=== PATIENT | male | born 1995 | race Caucasian/White ===

== ENCOUNTER 2020-09-10 10:34 | Emergency (ER) | payer SELFPAY ==
[2020-09-10 10:40] VITALS: BP 137/79; PULSE 81; RESP 18; TEMP 37; O2SAT 96; BMI 37.2
[2020-09-10] MEDS: Cyclobenzaprine HCl 5 MG TABLET PO (11:07)
[2020-09-10] MEDS: Ketorolac Tromethamine 60 MG/2 ML VIAL IM (11:07)
[2020-09-10] MEDS: Lidocaine 4 % Patch ADH..PATCH 1 PATCH TRANSDERMA (11:07)
--- NOTE | 2020-09-10 12:31 | ED_ITS ---
HPI - Back Pain/Injury General Chief Complaint: Back Pain/Injury Stated Complaint: back pain Time Seen by Provider: 09/10/20 11:00 Source: EMS Mode of arrival: EMS Limitations: no limitations History of Present Illness HPI Narrative: States right lower back pain for past 2 days feel like he slept on it wrong hurt when he got up and with certain positions. States he was stooping over had a cough foot and felt like he pulled a muscle again in the right lower back. States it hurts to move. No nausea vomiting diarrhea. No abdominal pain. No headache, chest pain shortness of breath. No recent illness. No history of IV use. MD elicited complaint: back pain Pertinent past history: prior back pain Onset (ago): hour(s) Timing: constant Severity: moderate Similar Symptoms Previously: Yes Quality: aching Location: lumbar spine Radiation: none Exacerbating factors: movement Relieving factors: immobilization Context: bending Associated symptoms: denies other symptoms Work related injury: No Related Data Previous Rx's Medication Instructions Recorded cyclobenzaprine 5 mg PO TID PRN #20 tab 09/10/20 ibuprofen 800 mg PO Q8H PRN #30 tab 09/10/20 Allergies Allergy/AdvReac Type Severity Reaction Status Date / Time shrimp [SHRIMP] Allergy Severe THROAT Verified 09/10/20 10:42 SWELLING shrimp Allergy Unknown itchy Uncoded 08/18/16 00:00 throat/ tongue swelling Review of Systems Review of Systems: Constitutional: No Weight loss, No Fever, No Chills, No Ni ght Sweats, No Fatigue, No Malaise ENT/Mouth: No Hearing loss, No Ear Pain, No Nasal Congestion, No Sinus Pain, No Hoarseness, No sore throat, No Rhinorrhea, No Swallowing Difficulty Eyes: No Eye Pain, No Swelling, No Redness, No Foreign Body, No Discharge, No Vision Changes Cardiovascular: No Chest Pain, No SOB, No Dyspnea on Exertion, No Orthopnea, No Edema, No Palpitations Respiratory: No Cough, No Sputum, No Wheezing, No Smoke Exposure, No Dyspnea Gastrointestinal: No Nausea, No Vomiting, No Diarrhea, No Constipation, No abdominal Pain, No Hematochezia, No Melena Genitourinary: no irregular bleeding, No Dysuria, No Urinary Frequency, No Hematuria, No Urinary Incontinence, No Urgency, No Flank Pain Musculoskeletal: No joint pain, No Myalgias, No Joint Swelling, + back pain as noted Skin: No Skin Lesions, No rash Neuro: No Weakness, No Numbness, No Paresthesias, No Loss of Consciousness, No Dizziness, No Headache Psych: No Social Issues Heme/Lymph: No Bruising, No Bleeding,No Lymphadenopathy Endocrine: No Polyuria, No Polydipsia, No Temperature Intolerance Yes all other systems are reviewed and are negative [facility] Past Medical History Medical History (Updated 09/10/20 @ 12:33 by nErrique Lopez NP) Asthma Social History Social History Advance Directives: No Advance Directives Information Provided: No Physical Exam Vital Signs: Vital Signs: Last Vital Signs Temp 98.6 F 09/10/20 10:40 Pulse 81 09/10/20 10:40 Resp 18 09/10/20 10:40 BP 137/79 09/10/20 10:40 Pulse Ox 96 09/10/20 10:40 Body Mass Index 37.2 Reviewed Const: General: cooperative and healthy appearing; No acute distress or intoxicated appearing Nutritional Appearance: average body habitus Orientation/consciousness: patient oriented x3 HENMT: Head: Yes normal to inspection Ears: hearing grossly normal bilaterally Eyes: General: appearance normal, both eyes and all related structures Visual Resendiz: normal visual resendiz by confrontation Neck: Neck: Yes normal visual inspection, No positive Brudzinski's sign, No positive Kernig's sign and No tender Thyroid: Thyroid normal Chest: Chest palpation & inspection: normal inspection of the chest Resp: Effort & Inspection: normal respiratory effort Auscultation: clear to auscultation bilaterally Cardio: Jugular venous distension: no JVD Rhythm: regular rhythm Heart sounds: S1 normal heart sound present and S2 normal heart sound present GI: Inspection: Yes normal to inspection Percussion: Yes normal to percussion Auscultation: normal bowel sounds : General: Yes no CVA tenderness Male General Exam: Yes normal external exam Back/Spine/Pelvis: Back: no CVA tenderness Back/spine/pelvis image: 1. Soft tissue palpation over the paraspinous muscle. No midline temp palpation. No step-off. No radiation. Negative leg lift. Skin: General skin exam: no rashes or lesions noted Neuro: General: patient oriented x3 Extrem: General: Yes normal to inspection Course Course Course Narrative: Feels much better after lidocaine, Flexeril, Toradol. Ambulatory status with gait. No low back pain red flags. Exam consistent with muscular strain of the lumbar paraspinous muscle. Will discharge with short course instead, muscle relaxant, return follow-up instructions. Feels comfortable plan. Stable for discharge. Discharge Plan Discharge Clinical Impression: Strain of lumbar region Patient Disposition: Home, Self-Care Instructions: Low Back Strain (ED) Additional Instructions: Gentle stretching Warm compresses Take medication prescribed No drinking alcohol or driving while taking the muscle relaxant as clinically sleepy and drowsy Return if any concerns or worsening symptoms Otherwise follow up with her primary care doctor as discussed Thank you Prescriptions: New cyclobenzaprine 10 mg tablet 5 mg PO TID PRN (Reason: muscle spasm) Qty: 20 RF: 0 ibuprofen 800 mg tablet 800 mg PO Q8H PRN (Reason: pain) Qty: 30 RF: 0 Referrals: Viviana Pimentel MD [Primary Care Provider] - 1 week Interventions: ED Discharge Assessment Last Done: 09/10/20 12:37 Discharge Date/Time: 09/10/20 12:37
== END 2020-09-10 12:37 | disposition home or self-care (01) ==
PROVIDERS: Emergency Provider Emergency Medicine Emergency Medical Services; PCP Internal Medicine
DX: S39.012A Strain of muscle, fascia and tendon of lower back, initial encounter (principal); X58.XXXA Exposure to other specified factors, initial encounter; Y93.9 Activity, unspecified; Y92.9 Unspecified place or not applicable; Y99.9 Unspecified external cause status
CPT/HCPCS: 96372; 99283; 99284; J1885

== ENCOUNTER 2021-04-15 08:57 | Emergency (ER) | payer SELFPAY ==
--- NOTE | ~2021-04-15 | XR_ITS ---
EXAMINATION: XR CHEST CLINICAL INFORMATION: SOB end easing COMPARISON: None TECHNIQUE: Frontal view of the chest was obtained. FINDINGS: No significant abnormality is noted involving the heart, lungs, mediastinum, bony thorax or soft tissues. XR/XR chest 1V IMPRESSION: Unremarkable chest examination.
[2021-04-15 09:10] VITALS: BP 119/74; PULSE 97; RESP 22; TEMP 36.6; O2SAT 94; BMI 37.8
--- NOTE | 2021-04-15 09:42 | ED.ASTHMA ---
HPI - Asthma General Chief Complaint: Upper Respiratory Symptoms Stated Complaint: difficulty breathing Time Seen by Provider: 04/15/21 09:35 Source: patient Mode of arrival: ambulatory Limitations: no limitations History of Present Illness HPI Narrative: 25 y/o male with history of untreated asthma, active smoker who presents to the ER with 1 day of SOB and wheezing. He reports last night he started having some difficulty breathing and dry cough. He was up frequently throughout the night coughing and having shortness of breath. He denies sputum production, fever, chills, headache, myalgias. No known COVID exposure. He has no known asthma triggers and his asthma is usually well controlled. He does not have an inhaler at home. MD complaint: shortness of breath and wheezing Onset (ago): day(s) (1) Severity: moderate Context: none known Associated symptoms: dry cough Related Data Current Asthma Therapy: none Previous Rx's Medication Instructions Recorded cyclobenzaprine 10 mg tablet 5 mg PO TID PRN #20 tab 09/10/20 ibuprofen 800 mg tablet 800 mg PO Q8H PRN #30 tab 09/10/20 albuterol sulfate 90 mcg/actuation 1 inh INHALATION QID PRN #6.7 g 04/15/21 aerosol inhaler azithromycin 250 mg tablet See Rx Instructions .ROUTE 04/15/21 (Zithromax Z-Delfin) .COMPLEX #6 tab prednisone 20 mg tablet 40 mg PO DAILY #10 tab 04/15/21 Allergies Allergy/AdvReac Type Severity Reaction Status Date / Time shrimp [SHRIMP] Allergy Severe THROAT Verified 04/15/21 09:13 SWELLING shrimp Allergy Unknown itchy Uncoded 08/18/16 00:00 throat/ tongue swelling Review of Systems Constitutional: Constitutional: Denies chills, Denies fatigue, Denies fever(s) and Denies headache(s) Eyes: Eyes: Reports no additional eye complaints ENT: Denies otalgia, Denies headache(s) and Denies sore throat Cardiovascular: Cardiovascular: Denies chest pain, Reports dyspnea and Reports dyspnea on exertion Respiratory: Respiratory: Denies chest congestion, Reports cough, Denies hemoptysis, Denies pain on inspiration, Denies pain with cough, Reports dyspnea, Reports dyspnea on exertion and Reports wheezing Gastrointestinal: Gastrointestinal: Denies abdominal pain, Denies nausea and Denies vomiting Musculoskeletal: Musculoskeletal: Denies myalgias Neurologic: Denies headache(s) Endocrine: Endocrine: Denies fatigue Allergic/Immunologic: Allergic/Immunologic: Denies urticaria and Reports wheezing PMFSH Past Medical History Attestation statement: The following information was validated with the patient. Medical History Asthma Social History Social History Advance Directives: No Advance Directives Information Provided: Yes Physical Exam Vital Signs: Vital Signs: Last Vital Signs Temp 96.5 F L 04/15/21 11:18 Pulse 104 H 04/15/21 11:18 Resp 18 04/15/21 11:18 BP 141/69 H 04/15/21 11:18 Pulse Ox 96 04/15/21 11:18 Body Mass Index 37.8 Appearance: Alert. Oriented X3. No acute distress. Eyes: Pupils equal, round and reactive to light. ENT: Pharynx normal. Neck: Normal inspection. Neck supple. CVS: Normal heart rate and rhythm. Pulses normal. Respiratory: Mild respiratory distress with RR 22, no accessory muscle use. Diffuse inspiratory and expiratory wheezes throughout. Abdomen: Soft and nontender. +BS x4 Skin: Skin warm and dry. Normal skin color. Normal skin turgor. No rashes. Extremities: No lower extremity edema. No calf tenderness. Neuro: Oriented X 3. No motor deficit. No sensory deficit. Course Course Course Narrative: 25 y/o male with history of asthma presented to the ER with SOB and wheezing since last night. RR 22 on arrival, afebrile. Able to speak in complete sentences with diffuse wheezing on exam. Will get COVID swab, CXR and give albuterol neb and prednisone now. Will monitor closlely. Reevaluation(s) Reevaluation #1: CXR clear. COVID negative. Getting hour long albuterol neb. Breathing comfortably and already feeling better. Reevaluation #2: Slight wheeze remains in RLL but significant improvement in aeration and wheezing. Spo2 96% no SOB. He is stable for d/c home with treatment for acute bronchitis and asthma exacerbation. Encouraged to f/u PCP. MDM - Asthma Lab Data Labs: Lab Results 04/15/21 Range/Units 09:39 COVID-19 ([facility]) Negative (Negative) COVID-19 Clin Com See Note Critical Care Time Critical Care Time Critical Care Time: No Discharge Plan Discharge Clinical Impression: Bronchitis Patient Disposition: Home, Self-Care Instructions: Asthma (ED), Acute Bronchitis (ED) Additional Instructions: Your chest x-ray was normal. Your COVID was negative. Take the prescribed medications as directed. Start the prednisone tomorrow - you were give 1st dose in the ER today. QUIT SMOKING! If you develop new or worsening symptoms call 911 or come back to the ER for further evaluation. Prescriptions: New azithromycin [Zithromax Z-Delfin] 250 mg tablet See Rx Instructions .ROUTE .COMPLEX Qty: 6 RF: 0 prednisone 20 mg tablet 40 mg PO DAILY Qty: 10 RF: 0 albuterol sulfate 90 mcg/actuation HFA aerosol inhaler 1 inh inhalation QID PRN (Reason: shortness of breath or wheezing) Qty: 6.7 RF: 0 No Action cyclobenzaprine 10 mg tablet 5 mg PO TID PRN (Reason: muscle spasm) Qty: 20 RF: 0 ibuprofen 800 mg tablet 800 mg PO Q8H PRN (Reason: pain) Qty: 30 RF: 0 Referrals: Viviana Pimentel MD [Primary Care Provider] - 1 week (asthma exac) Stand Alone Forms: Work/School Release Interventions: ED Discharge Assessment Last Done: 04/15/21 11:39 Discharge Date/Time: 04/15/21 11:39
[2021-04-15] MEDS: predniSONE 20 MG TABLET 60 MG PO (09:47)
[2021-04-15 10:07] LABS: COVID-19 Test Negative (Negative)
[2021-04-15] MEDS: Albuterol Sulfate (0.083%) 2.5 MG/3 ML VIAL.NEB 10 MG INHALE (10:27)
[2021-04-15 11:18] VITALS: BP 141/69; PULSE 104; RESP 18; TEMP 35.8; O2SAT 96
== END 2021-04-15 11:39 | disposition home or self-care (01) ==
PROVIDERS: Physician Assistant; Emergency Provider Emergency Medicine; PCP Internal Medicine
DX: J40 Bronchitis, not specified as acute or chronic (principal); R06.02 Shortness of breath; F17.210 Nicotine dependence, cigarettes, uncomplicated; Z20.822 Contact with and (suspected) exposure to COVID-19; Z79.899 Other long term (current) drug therapy; Z71.6 Tobacco abuse counseling
CPT/HCPCS: 36415; 71045; 87635; 94640; 94644; 99284

== ENCOUNTER 2021-04-28 17:32 | Emergency (ER) | payer OTHER, SELFPAY ==
--- NOTE | ~2021-04-28 | XR_ITS ---
EXAMINATION: XR CHEST CLINICAL INFORMATION: Shortness of breath COMPARISON: 04/15/2021 TECHNIQUE: Frontal view of the chest was obtained. FINDINGS: No acute finding. No obvious failure or infiltrate. No effusion. The cardiac silhouette is within normal limits. The hilar structures are comparable to previous. XR/XR chest 1V IMPRESSION: No acute finding.
[2021-04-28 18:35] VITALS: BP 131/59; PULSE 95; RESP 22; TEMP 36.8; O2SAT 95; BMI 37.8
[2021-04-28 20:53] LABS: MANUAL DIFF FLAG NO
[2021-04-28 20:54] LABS: Basophils Absolute Auto 0.1 X10*3/uL (0.0-0.2); Basophils Percent Auto 0.5 % (0-2); Eosinophils Absolute Auto 0.4 X10*3/uL (0.0-0.4); Eosinophils Percent Auto 2.4 % (0-4); Hematocrit 48.5 % (42-52); Hemoglobin 17.1 g/dl (14.0-18.0); Imm Gran Abs Auto 0.13 X10*3/uL (0.00-0.03); Imm Gran Pct Auto 0.8 % (0.0-0.4); Lymphocytes Absolute Auto 3.2 X10*3/uL (1.2-4.9); Lymphocytes Percent Auto 18.8 % (20-40); Mean Corpuscular HGB Conc 35.3 g/dl (31.0-36.0); Mean Corpuscular Hemoglobin 29.9 pg (27.0-33.0); Mean Corpuscular Volume 84.8 fL (80-98); Mean Platelet Volume 11.7 fL (9.4-12.4); Monocytes Absolute Auto 1.4 X10*3/uL (0.1-1.2); Monocytes Percent Auto 7.9 % (2-11); Neutrophils Percent Auto 69.6 % (45-73); Platelet Count 361 X10*3/uL (160-400); Red Blood Count 5.72 X10*6/uL (4.60-5.80); Red Cell Distribution Width 12.9 % (11.0-16.0); White Blood Count 17.3 X10*3/uL (4.8-10.8)
[2021-04-28 20:58] LABS: COVID-19 Test Negative (Negative)
--- NOTE | 2021-04-28 21:01 | ED_ITS ---
HPI - Asthma General Chief Complaint: Asthma Stated Complaint: SOB Time Seen by Provider: 04/28/21 20:30 Source: patient Mode of arrival: ambulatory Limitations: no limitations History of Present Illness HPI Narrative: 25-year-old male who presents emergency department for evaluation of shortness of breath, nonproductive cough and dyspnea on exertion. Patient has a history of asthma. He states that his asthma has been flaring up the past 1-2 weeks, he does not know was triggered his asthma. Seen on 04/15/2021 with similar complaints and was diagnosed with bronchitis. On prednisone 40 mg once a day for 5 days. Zithromax Z-Delfin and an albuterol inhaler. The patient states that he could not afford the inhaler but did take the prednisone and Zithromax. Patient states he did initially feel better but his symptoms have not gotten worse. He states that he has a cough which is nonproductive. He states that he has persistent shortness of breath and dyspnea on exertion. He denied fever, chills, chest pain, abdominal pain, nausea, vomiting, myalgias, arthralgias, weakness, diarrhea, loss of sense of taste or smell. Related Data Previous Rx's Medication Instructions Recorded cyclobenzaprine 10 mg tablet 5 mg PO TID PRN #20 tab 09/10/20 ibuprofen 800 mg tablet 800 mg PO Q8H PRN #30 tab 09/10/20 albuterol sulfate 90 mcg/actuation 1 inh INHALATION QID PRN #6.7 g 04/15/21 aerosol inhaler azithromycin 250 mg tablet See Rx Instructions .ROUTE 04/15/21 (Zithromax Z-Delfin) .COMPLEX #6 tab prednisone 20 mg tablet 40 mg PO DAILY #10 tab 04/15/21 albuterol sulfate 90 mcg/actuation 2 puff INHALATION Q4-6H PRN #8.5 g 04/28/21 aerosol inhaler prednisone 20 mg tablet 60 mg PO DAILY 5 Days #15 tab 04/28/21 Allergies Allergy/AdvReac Type Severity Reaction Status Date / Time shrimp [SHRIMP] Allergy Severe THROAT Verified 04/15/21 09:13 SWELLING shrimp Allergy Unknown itchy Uncoded 08/18/16 00:00 throat/ tongue swelling Review of Systems Review of Systems: Yes all other systems are reviewed and are negative [facility] Past Medical History [facility] Narrative: Past medical history: Asthma. Surgical history: None. Social history: The patient smokes half a pack of cigarettes per day x9 years. He does drink alcohol occasionally. The patient smokes 2-3 marijuana blunt cigarettes per day. He denies other drug use. Medical History Asthma Social History Social History Advance Directives: No Advance Directives Information Provided: Yes Physical Exam Vital Signs: Vital Signs: Last Vital Signs Temp 98.2 F 04/28/21 18:35 Pulse 110 H 04/28/21 21:49 Resp 24 H 04/28/21 21:09 BP 141/86 H 04/28/21 21:09 Pulse Ox 92 04/28/21 21:09 Body Mass Index 37.8 Const: General: cooperative and no acute distress Orientation/consciousness: oriented to person and oriented to place Limitations: no limitations HENMT: Head: Yes normal to inspection, Yes normocephalic and Yes atraumatic Ears: external ears normal General nose exam: Normal external nose present Face and sinus: Yes normal facial exam Mouth: Normal oral and palatal mucosa present Throat: Yes posterior oropharynx normal Eyes: General: appearance normal, both eyes and all related structures Pupils: Equal, round and reactive pupils present Neck: Neck: Yes normal visual inspection, Yes no lymphadenopathy, Yes trachea midline and Yes supple Chest: Chest palpation & inspection: normal inspection of the chest and normal palpation of entire chest wall Resp: Effort & Inspection: normal respiratory effort and able to speak in complete sentences Auscultation: rhonchi (Bilaterally at bases) and wheezes (Diffuse) Cardio: Rate: regular rate Rhythm: regular rhythm Heart sounds: S1 normal heart sound present, S2 normal heart sound present and no murmurs GI: Inspection: Yes normal to inspection Palpation (GI): Soft to palpation, nontender and no guarding Auscultation: normal bowel sounds : General: Yes no CVA tenderness Back/Spine/Pelvis: Back: no CVA tenderness Skin: General skin exam: no rashes or lesions noted Neuro: General: oriented to person and oriented to place Cranial nerves: Yes CN's II-XII intact bilaterally and Yes Equal, round and reactive pupils present Cognition (Neuro): normal cognition Motor exam (neuro): 5/5 motor strength present throughout Extrem: General: Yes normal to inspection Psych: Appearance: grossly normal Speech and movement: Normal speech and movement present Affect: normal affect Attitude: cooperative Thought process: Normal thought process present Thought content: Normal thought content present Course Course Course Narrative: 25-year-old male who has a history of asthma presents emergency department for evaluation shortness of breath, cough and dyspnea on exertion. The patient has had symptoms for 1-2 weeks. He was seen on 04/15/2021 and diagnosed with bronchitis treated with azithromycin and prednisone. The patient was given a prescription for an albuterol inhaler but could not afford the cost and did not get this medication. The patient's vital signs were normal. The patient's physical examination did reveal wheezing and rhonchi on his lung exam. Chest x-ray was reviewed by me and there was no acute process noted. CBC revealed an elevated white blood count of 17,300. I ordered albuterol meter dose inhaler x4 puffs followed by a DuoNeb x1 the patient has wheezing and rhonchi. 215: The patient got significant improvement with the above treatment. Lung exam is improved with no wheezing or rhonchi. Patient was discharged home with a prescription for prednisone 60 mg once a day for 5 days and albuterol inhaler 2 puffs every 4-6 hours as needed for wheezing and shortness of breath. The patient was given verbal and printed instructions prior to discharge. The patient was advised to follow-up with his PCP in 2 days and to return to the emergency department if his symptoms get worse or if he develops any new symptoms that are concerning to him. MDM - Asthma Lab Data Result diagrams: 04/28/21 20:48 04/28/21 20:48 Labs: Lab Results 04/28/21 04/28/21 04/28/21 Range/Units 20:37 20:48 20:48 WBC 17.3 H (4.8-10.8) X10*3/uL RBC 5.72 (4.60-5.80) X10*6/uL Hgb 17.1 (14.0-18.0) g/dl Hct 48.5 (42-52) % MCV 84.8 (80-98) fL MCH 29.9 (27.0-33.0) pg MCHC 35.3 (31.0-36.0) g/dl RDW 12.9 (11.0-16.0) % Plt Count 361 (160-400) X10*3/uL MPV 11.7 (9.4-12.4) fL Immature Gran % (Auto) 0.8 H (0.0-0.4) % Neut % (Auto) 69.6 (45-73) % Lymph % (Auto) 18.8 L (20-40) % [place] % (Auto) 7.9 (2-11) % Eos % (Auto) 2.4 (0-4) % Baso % (Auto) 0.5 (0-2) % Lymph # (Auto) 3.2 (1.2-4.9) X10*3/uL [place] # (Auto) 1.4 H (0.1-1.2) X10*3/uL Eos # (Auto) 0.4 (0.0-0.4) X10*3/uL Baso # (Auto) 0.1 (0.0-0.2) X10*3/uL Abs Immat Gran (auto) 0.13 H (0.00-0.03) X10*3/uL Absolute Neuts (auto) 12.0 H (2.0-8.3) X10*3/uL Absolute Nucleated RBC 0.000 (0.0-0.012) X10*3/uL Nucleated RBC % (auto) 0.0 (0.0-0.2) /100WBC Sodium 139 (135-145) mmol/L Potassium 4.4 (3.3-5.1) mmol/L Chloride 102 (96-108) mmol/L Carbon Dioxide 27 (22-29) mmol/L Anion Gap 14 (12-20) BUN 11 (9-16) mg/dL Creatinine 1.36 (0.5-1.4) mg/dL Estim Creat Clear Calc 102.5 Estimated GFR > 60 Random Glucose 94 (60-115) mg/dL Calcium 10.1 (8.4-10.2) mg/dL Magnesium (1.6-2.6) mg/dL Total Bilirubin (0.0-1.0) mg/dL Direct Bilirubin (0.0-0.5) mg/dL AST (5-37) U/L ALT (0-40) U/L Alkaline Phosphatase (39-117) U/L Total Protein (6.5-8.0) g/dL Albumin (3.5-5.0) g/dL COVID-19 ([facility]) Negative (Negative) COVID-19 Clin Com See Note 04/28/21 Range/Units 20:48 WBC (4.8-10.8) X10*3/uL RBC (4.60-5.80) X10*6/uL Hgb (14.0-18.0) g/dl Hct (42-52) % MCV (80-98) fL MCH (27.0-33.0) pg MCHC (31.0-36.0) g/dl RDW (11.0-16.0) % Plt Count (160-400) X10*3/uL MPV (9.4-12.4) fL Immature Gran % (Auto) (0.0-0.4) % Neut % (Auto) (45-73) % Lymph % (Auto) (20-40) % [place] % (Auto) (2-11) % Eos % (Auto) (0-4) % Baso % (Auto) (0-2) % Lymph # (Auto) (1.2-4.9) X10*3/uL [place] # (Auto) (0.1-1.2) X10*3/uL Eos # (Auto) (0.0-0.4) X10*3/uL Baso # (Auto) (0.0-0.2) X10*3/uL Abs Immat Gran (auto) (0.00-0.03) X10*3/uL Absolute Neuts (auto) (2.0-8.3) X10*3/uL Absolute Nucleated RBC (0.0-0.012) X10*3/uL Nucleated RBC % (auto) (0.0-0.2) /100WBC Sodium (135-145) mmol/L Potassium (3.3-5.1) mmol/L Chloride (96-108) mmol/L Carbon Dioxide (22-29) mmol/L Anion Gap (12-20) BUN (9-16) mg/dL Creatinine (0.5-1.4) mg/dL Estim Creat Clear Calc Estimated GFR Random Glucose (60-115) mg/dL Calcium (8.4-10.2) mg/dL Magnesium 2.4 (1.6-2.6) mg/dL Total Bilirubin 0.7 (0.0-1.0) mg/dL Direct Bilirubin 0.2 (0.0-0.5) mg/dL AST 22 (5-37) U/L ALT 31 (0-40) U/L Alkaline Phosphatase 58 (39-117) U/L Total Protein 7.5 (6.5-8.0) g/dL Albumin 4.8 (3.5-5.0) g/dL COVID-19 ([facility]) (Negative) COVID-19 Clin Com Discharge Plan Discharge Clinical Impression: Asthma with acute exacerbation Qualifiers: Asthma severity: moderate Asthma persistence: persistent Qualified Code(s): J45.41 - Moderate persistent asthma with (acute) exacerbation Patient Disposition: Home, Self-Care Instructions: Asthma (ED) Additional Instructions: Your blood work did reveal an elevated white blood cell count but this is most likely caused by the prednisone that you are taking and not infection. The chest x-ray was normal. Take prednisone 20 mg pills, 3 pills once a day for 5 days. Use the albuterol inhaler with the spacer, 2 puffs every 4-6 hours as needed for shortness of breath and wheezing. Follow-up with your doctor in 2 days. Please return to the emergency department if your symptoms get worse or if you develop any symptoms that are concerning to you. Prescriptions: New prednisone 20 mg tablet 60 mg PO DAILY 5 Days Qty: 15 RF: 0 albuterol sulfate 90 mcg/actuation HFA aerosol inhaler 2 puff inhalation Q4-6H PRN (Reason: shortness of breath or wheezing) Qty: 8.5 RF: 0 No Action cyclobenzaprine 10 mg tablet 5 mg PO TID PRN (Reason: muscle spasm) Qty: 20 RF: 0 ibuprofen 800 mg tablet 800 mg PO Q8H PRN (Reason: pain) Qty: 30 RF: 0 azithromycin [Zithromax Z-Delfin] 250 mg tablet See Rx Instructions .ROUTE .COMPLEX Qty: 6 RF: 0 prednisone 20 mg tablet 40 mg PO DAILY Qty: 10 RF: 0 albuterol sulfate 90 mcg/actuation HFA aerosol inhaler 1 inh inhalation QID PRN (Reason: shortness of breath or wheezing) Qty: 6.7 RF: 0
[2021-04-28 21:09] VITALS: BP 141/86; PULSE 92; RESP 24; O2SAT 92
[2021-04-28 21:20] LABS: Anion Gap 14 (12-20); Blood Urea Nitrogen 11 mg/dL (9-16); Calcium 10.1 mg/dL (8.4-10.2); Carbon Dioxide 27 mmol/L (22-29); Chloride 102 mmol/L (96-108); Creatinine Clr Calc Pharmacy 102.5; Estimated Glomerular Filt Rate > 60; Glucose Random 94 mg/dL (60-115); Potassium 4.4 mmol/L (3.3-5.1); Sodium 139 mmol/L (135-145)
[2021-04-28 21:21] LABS: Alanine Aminotransferase 31 U/L (0-40); Albumin Level 4.8 g/dL (3.5-5.0); Alkaline Phosphatase 58 U/L (39-117); Aspartate Amino Transferase 22 U/L (5-37); Bilirubin Direct 0.2 mg/dL (0.0-0.5); Bilirubin Total 0.7 mg/dL (0.0-1.0); Magnesium 2.4 mg/dL (1.6-2.6); Total Protein 7.5 g/dL (6.5-8.0)
[2021-04-28] MEDS: Albuterol/Iprat 2.5/0.5MG 3 ML AMPUL.NEB INHALE (21:44)
[2021-04-28] MEDS: Albuterol Sulfate 90 MCG 8 GM INHALER 4 PUFF INHALE (21:44)
[2021-04-28] MEDS: methylPREDNISolone Sod Succ 125 MG/2 ML VIAL IVPUSH (21:47)
[2021-04-28 21:49] VITALS: PULSE 110; O2SAT 95
[2021-04-28 21:56] VITALS: PULSE 97; O2SAT 93
[2021-04-28 22:09] VITALS: BP 121/67; PULSE 101; RESP 14; O2SAT 96
--- NOTE | 2021-04-28 22:11 | PC.NURSE ---
Pt aaox4, resting on stretcher in NAD, breathing with ease on RA with neb tx. Pt denies pain/discomfort, able to speak in full coherent sentences. Pt aware and agreeable of plan for DC with new RX meds. Pt skin warm dry and normal in appearance for age and race.
== END 2021-04-28 22:24 | disposition home or self-care (01) ==
PROVIDERS: Physician Assistant; Emergency Provider Emergency Medicine Emergency Medical Services
DX: J45.41 Moderate persistent asthma with (acute) exacerbation (principal); Z20.822 Contact with and (suspected) exposure to COVID-19; R06.02 Shortness of breath; F17.210 Nicotine dependence, cigarettes, uncomplicated; F12.90 Cannabis use, unspecified, uncomplicated
CPT/HCPCS: 36415; 71045; 80048; 80076; 83735; 85025; 87635; 94640; 96374; 99284; J2930

== ENCOUNTER 2021-05-11 04:46 | Emergency (ER) | payer SELFPAY ==
[2021-05-11 04:56] VITALS: BP 113/56; BP 127/84; PULSE 90; PULSE 96; RESP 20; TEMP 36.8; O2SAT 94; O2SAT 97; BMI 37.2
[2021-05-11] MEDS: Albuterol Sulfate 90 MCG 8 GM INHALER 4 PUFF INHALE (05:27)
[2021-05-11] MEDS: predniSONE 20 MG TABLET 40 MG PO (05:27)
--- NOTE | 2021-05-11 05:35 | ED_ITS ---
HPI - Asthma General Chief Complaint: Upper Respiratory Symptoms Stated Complaint: Asthma Time Seen by Provider: 05/11/21 05:21 Source: patient Mode of arrival: ambulatory History of Present Illness HPI Narrative: One day of worsening shortness of breath, patient states that he ran out of his albuterol. Otherwise denies any fever, chills, sore throat and denies having gotten the COVID-19 vaccine. Related Data Previous Rx's Medication Instructions Recorded cyclobenzaprine 10 mg tablet 5 mg PO TID PRN #20 tab 09/10/20 ibuprofen 800 mg tablet 800 mg PO Q8H PRN #30 tab 09/10/20 albuterol sulfate 90 mcg/actuation 1 inh INHALATION QID PRN #6.7 g 04/15/21 aerosol inhaler azithromycin 250 mg tablet See Rx Instructions .ROUTE 04/15/21 (Zithromax Z-Delfin) .COMPLEX #6 tab prednisone 20 mg tablet 40 mg PO DAILY #10 tab 04/15/21 albuterol sulfate 90 mcg/actuation 2 puff INHALATION Q4-6H PRN #8.5 g 04/28/21 aerosol inhaler prednisone 20 mg tablet 60 mg PO DAILY 5 Days #15 tab 04/28/21 prednisone 20 mg tablet 40 mg PO DAILY 4 Days #8 tab 05/11/21 Allergies Allergy/AdvReac Type Severity Reaction Status Date / Time shrimp [SHRIMP] Allergy Severe THROAT Verified 04/15/21 09:13 SWELLING shrimp Allergy Unknown itchy Uncoded 08/18/16 00:00 throat/ tongue swelling Review of Systems Review of Systems: Pertinent positives and negatives as stated in HPI 10 point review of systems is otherwise negative. PMFSH Past Medical History Source: nursing notes reviewed Medical History Asthma Social History Social History Advance Directives: No Physical Exam Vital Signs: Vital Signs: Last Vital Signs Temp 98.2 F 05/11/21 07:48 Pulse 84 05/11/21 07:48 Resp 18 05/11/21 07:48 BP 120/39 L 05/11/21 07:48 Pulse Ox 97 05/11/21 07:48 Body Mass Index 37.2 VITAL SIGNS: Reviewed. GENERAL: Well developed, well nourished, in no acute distress. HEAD: Normocephalic/atraumatic EYES: PERRLA, EOMI EARS: Ext canals without abnormality, TMs non-bulging and non-erythematous NOSE: Nares patent bilateral OROPHARYNX: no oral lesions noted, posterior pharynx clear and non-erythematous without noted tonsillar enlargement/erythema/exudates NECK: Supple, no adenopathy LUNGS: Expiratory wheeze, mild tachypnea, patient completing entire sentences, no rhonchi/decreased breath sounds SpO2<94> CARDIOVASCULAR: Regular rate and rhythm without noted murmurs ABDOMEN: Soft, non-tender, non-distended with bowel sounds SKIN: Inspection of the skin reveals no rashes NEUROLOGIC: Alert and oriented x 4. Strength and sensation to light touch were grossly intact x 4. Course Course Course Narrative: With history and clinical presentation consistent with mild asthma exacerbation and on re-evaluation after providing patient with 4 puffs of albuterol inhaler as well as oral steroids he reports significant improvement and was otherwise discharged home in stable condition with instructions follow- up with his primary care provider. Discharge Plan Discharge Clinical Impression: Asthma exacerbation Patient Disposition: Home, Self-Care Instructions: Asthma (ED) Additional Instructions: 1. Albuterol, 2 puffs, every 4 hours, for the next 24 hours. Thereafter, use every 4-6 hours as needed for shortness of breath. 2. Follow-up with your primary care provider in the next 2-3 days for re- evaluation. Return to the ER for acute worsening of symptoms. Prescriptions: New prednisone 20 mg tablet 40 mg PO DAILY 4 Days Qty: 8 RF: 0 No Action prednisone 20 mg tablet 60 mg PO DAILY 5 Days Qty: 15 RF: 0 albuterol sulfate 90 mcg/actuation HFA aerosol inhaler 2 puff inhalation Q4-6H PRN (Reason: shortness of breath or wheezing) Qty: 8.5 RF: 0 cyclobenzaprine 10 mg tablet 5 mg PO TID PRN (Reason: muscle spasm) Qty: 20 RF: 0 ibuprofen 800 mg tablet 800 mg PO Q8H PRN (Reason: pain) Qty: 30 RF: 0 azithromycin [Zithromax Z-Delfin] 250 mg tablet See Rx Instructions .ROUTE .COMPLEX Qty: 6 RF: 0 prednisone 20 mg tablet 40 mg PO DAILY Qty: 10 RF: 0 albuterol sulfate 90 mcg/actuation HFA aerosol inhaler 1 inh inhalation QID PRN (Reason: shortness of breath or wheezing) Qty: 6.7 RF: 0 Referrals: Physician,Unknown [Primary Care Provider] - 2 days Stand Alone Forms: Work/School Release Interventions: ED Discharge Assessment Last Done: 05/11/21 07:55 Discharge Date/Time: 05/11/21 07:55
[2021-05-11 07:48] VITALS: BP 120/39; PULSE 84; RESP 18; TEMP 36.8; O2SAT 97
--- NOTE | 2021-05-11 07:52 | PC.NURSE ---
care taken over at 0700- pt resting in bed comfortably. aox3 speaking in full clear sentences. skin is pwd, resp even and unlabored with some noted nasal congestion. abd soft non tender and no complaints. pt aware of plan of care for dc and denied having any questions.
== END 2021-05-11 07:55 | disposition home or self-care (01) ==
PROVIDERS: Emergency Provider Student in an Organized Health Care Education/Training Program
DX: J45.901 Unspecified asthma with (acute) exacerbation (principal)
CPT/HCPCS: 99283; 99284